=== PATIENT | male | born 1955 | race Hispanic/Latino ===

== ENCOUNTER 2018-09-28 13:21 | Emergency (ER) | payer BC, OTHER ==
[~2018-09-28 13:21] MED LIST: ATOR40TA71 PO; CITA40TA6 PO; DAPA1TAB5 PO; FENO145T PO; GLIP10TA9 PO; NIAC-8 PO; ROSU40 PO
== END 2018-09-28 14:39 | disposition home or self-care (01) ==
LOC: EDH 13:21
DX: M54.2 Cervicalgia (principal); G89.29 Other chronic pain; E11.9 Type 2 diabetes mellitus without complications; Z87.891 Personal history of nicotine dependence
CPT/HCPCS: 99281

== ENCOUNTER → 2018-10-10 | Outpatient (CLI) | payer BC ==
[~2018-10-10] MED LIST changes: +GADODIAMIDE 10 MMOL/20 ML VIAL IV ONE
== END | disposition home or self-care (01) ==
LOC: RAH 11:19
PROVIDERS: ATTEND Family Medicine
DX: M50.122 Cervical disc disorder at C5-C6 level with radiculopathy (principal)
CPT/HCPCS: 72156; A9579

== ENCOUNTER → 2023-08-01 | Outpatient (CLI) | payer OTHER ==
[~2023-08-01] MED LIST changes: +CITA-108 PO; -CITA40TA6 PO; -GADODIAMIDE 10 MMOL/20 ML VIAL IV ONE
== END | disposition home or self-care (01) ==
LOC: RAH 08:45
PROVIDERS: ATTEND Internal Medicine
DX: M47.812 Spondylosis without myelopathy or radiculopathy, cervical region (principal); M43.22 Fusion of spine, cervical region; M54.2 Cervicalgia
CPT/HCPCS: 72050

== ENCOUNTER → 2023-08-29 | Outpatient (CLI) | payer OTHER | END | disposition home or self-care (01) | LOC: RAH 13:42 | PROVIDERS: ATTEND Internal Medicine | DX: N40.0 Benign prostatic hyperplasia without lower urinary tract symptoms (principal); R31.29 Other microscopic hematuria | CPT/HCPCS: 76770 ==

== ENCOUNTER → 2024-10-28 | Outpatient (CLI) | payer OTHER ==
[~2024-10-28] MED LIST changes: +GLIP10TA16 PO; -GLIP10TA9 PO
--- NOTE | 2024-10-28 15:20 | HMCIMG ---
Exam Type: FOOT COMP 3+VWS RT Clinical Information: Personal history of (healed) traumatic fracture; PAIN IN RIGHT FOOT Comparison: None Findings: The bone examination is unremarkable. No fractures or dislocations are seen. No radiopaque foreign bodies are noted. Soft tissues are preserved. IMPRESSION: Normal examination.
== END | disposition home or self-care (01) ==
LOC: LAB 14:28
PROVIDERS: ATTEND Physician Assistant
DX: M79.671 Pain in right foot (principal); Z87.81 Personal history of (healed) traumatic fracture
CPT/HCPCS: 73630